=== PATIENT | female | born 1995 | race American Indian/Alaskan Native ===

== ENCOUNTER → 2024-12-11 | Outpatient (CLI) | payer BC, SELFPAY ==
--- NOTE | 2024-12-11 12:30 | XR_ITS ---
Examination: Thyroid sonography complete Technique: Grayscale sonographic images thyroid lobes are carful analysis Exam date and time: December 11, 2024 1251 hrs. Indications: Diagnosis multinodular goiter, history bilateral thyroid nodules on sonogram June 24, 2024 Findings: Right thyroid 4.6 cm Midpole nodule 7 x 6 mm Left thyroid 4.4 cm Upper pole vascular nodule 2.0 x 1.5 cm Upper pole nodule 5 x 4 mm Lower pole nodule 5 x 5 mm Impression: Thyroid nodules as above
== END | disposition home or self-care (01) ==
LOC: CDIM 12:30
PROVIDERS: PCP Nurse Practitioner Family; Referring Provider Nurse Practitioner Family; Visit Provider Nurse Practitioner Family
DX: E04.2 Nontoxic multinodular goiter (principal)
CPT/HCPCS: 76536